=== PATIENT | female | born 1980 | race Caucasian/White ===

== ENCOUNTER 2016-12-07 14:05 | Emergency (ER) | payer SELFPAY ==
[2016-12-07 14:40] VITALS: BP 117/59
--- NOTE | 2016-12-07 14:51 | RAD ---
INDICATION: Ankle pain. No injury COMPARISON: None TECHNIQUE: AP, lateral, and oblique views were obtained. FINDINGS: There are no acute bony findings. The ankle mortise is intact. 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 IMPRESSION: NO ACUTE BONY FINDINGS.
--- NOTE | 2016-12-07 15:29 | UC ---
Lower Extremity/Ankle HPI - HPI Summary HPI Summary: Noticed pain in ball of R foot last night after work, had difficulty walking home. Pain wraps around into arch of foot. No trauma. - History of Current Complaint Chief Complaint: UCLowerExtremity Stated Complaint: RIGHT ANKLE INJURY Time Seen by Provider: 12/07/16 14:41 Hx Obtained From: Patient Hx Last Menstrual Period: END OF LAST MONTH ?: No Onset/Duration: Gradual Onset, Lasting Hours Severity Initially: Mild Severity Currently: Mild Aggravating Factor(s): Standing, Ambulation Alleviating Factor(s): Rest Able to Bear Weight: Yes - Allergies/Home Medications Allergies/Adverse Reactions: Allergies Allergy/AdvReac Type Severity Reaction Status Date / Time environmental allergies Allergy Eyes Uncoded 12/07/16 14:40 Itchy/Swollen/Red/Watery Home Medications: Home Medications Naproxen Sodium 220 mg PO ONCE PRN 12/07/16 [History Confirmed 12/07/16] PMH/Surg Hx/FS Hx/Imm Hx - Additional Past Medical History Additional PMH: pt has charcot raffy tooth Endocrine History Of: Denies: Diabetes Cardiovascular History Of: Denies: Hypertension, Pacemaker/ICD Respiratory History Of: Reports: Asthma - Surgical History Surgical History: Yes Surgery Procedure, Year, and Place: c section x 2 - Family History Known Family History: Positive: Other - charcot raffy tooth - Social History Alcohol Use: Rare Substance Use Type: None Substance Use Comment - Amount & Last Used: 3 20oz. caffeine drinks Smoking Status (MU): Never Smoked Tobacco Review of Systems Constitutional: Negative Skin: Negative Eyes: Negative ENT: Negative Respiratory: Negative Cardiovascular: Negative Gastrointestinal: Negative Genitourinary: Negative Motor: Negative Neurovascular: Negative Musculoskeletal: Arthralgia - foot pain Neurological: Negative Psychological: Negative All Other Systems Reviewed And Are Negative: Yes Physical Exam Triage Information Reviewed: Yes Appearance: Well-Appearing, Pain Distress - mild Vital Signs: Initial Vital Signs Temp 99.5 F 12/07/16 14:35 Pulse 93 12/07/16 14:35 Resp 16 12/07/16 14:35 BP 117/59 12/07/16 14:35 Pulse Ox 100 12/07/16 14:35 Vital Signs Reviewed: Yes Eye Exam: Normal Eyes: Positive: Conjunctiva Clear ENT Exam: Normal ENT: Positive: Normal ENT inspection, Hearing grossly normal, Pharynx normal, TMs normal Dental Exam: Other - edentulous Respiratory Exam: Normal Respiratory: Positive: Chest non-tender, Lungs clear, Normal breath sounds, No respiratory distress, No accessory muscle use Cardiovascular Exam: Normal Cardiovascular: Positive: RRR, No Murmur Musculoskeletal Exam: Other - tender over ball of R foot, near metatarsal heads Musculoskeletal: Positive: Strength Intact, ROM Intact Neurological Exam: Normal Psychological Exam: Normal Skin Exam: Normal Lower Extremity Course/Dx - Differential Dx/Diagnosis Provider Diagnoses: R metatarsalgia Discharge - Discharge Plan Condition: Stable Disposition: HOME Patient Education Materials: Arthralgia (ED) Forms: *Work Release Referrals: Francisco DEL CASTILLO,García Forbes [Doctor of Podiatric Medicine] - Additional Instructions: As we discussed, I think your foot pain is coming from the ball of your foot, from inflammation around the ends of your metatarsals (the long bones in the feet). Usually this is treated by trying to rest from weight-bearing when possible and increasing the shock absorption in your shoes. Your current insoles do not have any cushion for your metatarsals. Please find thin foam insoles that you can cut to the shape of your work shoes, then on top of those put "sport" insoles that include the whole forefoot and have a metatarsal pad. Alternatively, you could use the insoles you have and buy separate metatarsal pads for your shoes.
== END 2016-12-07 15:30 | disposition home or self-care (01) ==
LOC: UCCORT 14:05
DX: M77.41 Metatarsalgia, right foot (principal)
CPT/HCPCS: 99211; G0463

== ENCOUNTER 2017-12-31 19:22 | Emergency (ER) | payer SELFPAY ==
[2017-12-31 19:43] VITALS: BP 126/67
[2017-12-31] MEDS ORDERED: Ibuprofen TAB* 600 MG PO ONE (19:58)
[2017-12-31] MEDS ORDERED: Cyclobenzaprine TAB* 10 MG PO ONE (19:58)
--- NOTE | 2017-12-31 20:18 | UC ---
Shoulder Pain HPI - HPI Summary HPI Summary: awoke this morning with right shoulder pain hurts to move her arm-could barely pass money out the drive in window at [facility] today, pain ful rom trapezious muscles sore and tight - History of Current Complaint Chief Complaint: UCUpperExtremity Stated Complaint: RIGHT ARM COMPLAINT Time Seen by Provider: 12/31/17 19:42 Hx Obtained From: Patient Hx Last Menstrual Period: 12/16/17 ?: No Onset/Duration: Sudden Onset Timing: Constant Severity Initially: Moderate Severity Currently: Moderate Location Of Pain: Is Discrete @ Pain Intensity: 5 Pain Scale Used: 0-10 Numeric Character: Aching, Throbbing, Stiffness Aggravating Factor(s): Movement Alleviating Factor(s): OTC Meds - ibuprofen and icyhot for brief periods of time Associated Signs And Symptoms: Positive: Negative Related History: Dominant Hand Right - Allergies/Home Medications Allergies/Adverse Reactions: Allergies Allergy/AdvReac Type Severity Reaction Status Date / Time environmental allergies Allergy Eyes Uncoded 12/31/17 19:36 Itchy/Swollen/Red/Watery PMH/Surg Hx/FS Hx/Imm Hx Previously Healthy: No - muscular dystrophy - Surgical History Surgical History: Yes Surgery Procedure, Year, and Place: c section x 2 - Family History Known Family History: Positive: Other - charcot raffy tooth - Social History Occupation: Employed Full-time Lives: With Family Alcohol Use: None Substance Use Type: None Substance Use Comment - Amount & Last Used: 3 20oz. caffeine drinks Smoking Status (MU): Never Smoked Tobacco Review of Systems Constitutional: Negative Skin: Negative Eyes: Negative ENT: Negative Respiratory: Negative Cardiovascular: Negative Gastrointestinal: Negative Genitourinary: Negative Motor: Decreased ROM - right shoulder Neurovascular: Negative Musculoskeletal: Arthralgia - right shoulder Neurological: Negative Psychological: Negative Is Patient Immunocompromised?: No All Other Systems Reviewed And Are Negative: Yes Physical Exam Triage Information Reviewed: Yes Appearance: Well-Appearing, Pain Distress, Obese Vital Signs: Initial Vital Signs Temp 97.9 F 12/31/17 19:36 Pulse 80 12/31/17 19:36 Resp 16 12/31/17 19:36 BP 126/67 12/31/17 19:36 Pulse Ox 100 12/31/17 19:36 Vital Signs Reviewed: Yes Eye Exam: Normal Eyes: Positive: Conjunctiva Clear ENT Exam: Normal ENT: Positive: Normal ENT inspection, Hearing grossly normal. Negative: Nasal congestion, Trismus, Muffled voice, Hoarse voice Dental Exam: Normal Neck exam: Normal Neck: Positive: Supple, Nontender, No Lymphadenopathy Respiratory Exam: Normal Respiratory: Positive: Chest non-tender, Lungs clear, Normal breath sounds, No respiratory distress, No accessory muscle use Cardiovascular Exam: Normal Cardiovascular: Positive: RRR, No Murmur, Pulses Normal, Brisk Capillary Refill Musculoskeletal Exam: Other Musculoskeletal: Positive: No Edema, Strength Limited @ - right shoulder, ROM Limited @ - right shoulder Neurological Exam: Normal Neurological: Positive: Alert, Muscle Tone Normal Psychological Exam: Normal Skin Exam: Normal Shoulder Course/Dx - Course Assessment/Plan: flexeril, mobic, heat, follow with pcp/[facility] or return as needed - Differential Dx/Diagnosis Provider Diagnoses: muscle strain right shoulder Discharge - Discharge Plan Condition: Stable Disposition: HOME Prescriptions: Cyclobenzaprine TAB* [Flexeril 10 MG TAB*] 10 mg PO TID PRN #30 tab PRN Reason: muscle spasm Meloxicam [Mobic] 7.5 mg PO BID #30 tablet Patient Education Materials: Shoulder Pain (ED) Forms: *Work Release Referrals: [facility] [Outside] - If Needed Delio Hyman MD [Medical Doctor] - 1 Week
== END 2017-12-31 20:10 | disposition home or self-care (01) ==
LOC: UCCORT 19:22
DX: S66.811A Strain of other specified muscles, fascia and tendons at wrist and hand level, right hand, initial encounter (principal); X50.1XXA Overexertion from prolonged static or awkward postures, initial encounter; Y93.84 Activity, sleeping; Y92.003 Bedroom of unspecified non-institutional (private) residence as the place of occurrence of the external cause
CPT/HCPCS: 99212; A9270-GY; G0463

== ENCOUNTER 2018-03-17 17:08 | Emergency (ER) | payer OTHER ==
[2018-03-17 17:30] VITALS: BP 129/74
--- NOTE | 2018-03-17 18:05 | ED ---
Lower Extremity - HPI Summary HPI Summary: 38 yr old female with the complaint of right foot plantar pain for a month. No specific injury or specific recollection of onset of symptoms. pain present under arch of foot to the posterior heel. No calf pain. Pain worse with bearing weight. No other complaints. - History of Current Complaint Chief Complaint: UCLowerExtremity Stated Complaint: RT FOOT COMPLAINT Time Seen by Provider: 03/17/18 17:33 Hx Last Menstrual Period: 03/06/18 Pain Intensity: 8 - Allergies/Home Medications Allergies/Adverse Reactions: Allergies Allergy/AdvReac Type Severity Reaction Status Date / Time No Known Allergies Allergy Verified 03/17/18 17:30 Home Medications: Home Medications Albuterol HFA INHALER* [Ventolin HFA Inhaler*] 2 puff INH Q6H PRN 03/17/18 [ History Confirmed 03/17/18] Naproxen Sodium [Naproxen 220 mg] 440 mg PO DAILY PRN 03/17/18 [History Confirmed 03/17/18] PMH/Surg Hx/FS Hx/Imm Hx Endocrine/Hematology History: Denies: Hx Diabetes Cardiovascular History: Denies: Hx Hypertension, Hx Pacemaker/ICD Respiratory History: Reports: Hx Asthma Sensory History: Denies: Hx Hearing Aid Psychiatric History: Denies: Hx Panic Disorder - Surgical History Surgery Procedure, Year, and Place: c section x 2 Infectious Disease History: No Infectious Disease History: Denies: Traveled Outside the [place] in Last 30 Days - Family History Known Family History: Positive: Other - charcot raffy tooth - Social History Occupation: Employed Full-time Alcohol Use: None Substance Use Type: Reports: None Substance Use Comment - Amount & Last Used: 3 20oz. caffeine drinks Smoking Status (MU): Never Smoked Tobacco Review of Systems Positive: Other - foot pain right All Other Systems Reviewed And Are Negative: Yes Physical Exam Triage Information Reviewed: Yes Vital Signs On Initial Exam: Initial Vitals Temp Pulse Resp BP Pulse Ox 98.2 F 90 16 129/74 100 03/17/18 17:18 03/17/18 17:18 03/17/18 17:18 03/17/18 17:18 03/17/18 17:18 Vital Signs Reviewed: Yes Appearance: Positive: Well-Appearing, No Pain Distress Skin: Positive: Warm Head/Face: Positive: Normal Head/Face Inspection Eyes: Positive: EOMI Respiratory/Lung Sounds: Positive: Clear to Auscultation Cardiovascular: Positive: RRR, Pulses are Symmetrical in both Upper and Lower Extremities - intact DP and PT pulses Abdomen Description: Positive: Nontender Musculoskeletal: Positive: Other - mild tender right foot plantar fascia. Achilles tendon is solid, not weak, and no calf tenderness right leg. No STS to foot, no redness, no bruising. Neurological: Positive: Sensory/Motor Intact, Alert, Oriented to Person Place, Time, CN Intact II-III Diagnostics - Vital Signs Vital Signs Temp Pulse Resp BP Pulse Ox 03/17/18 17:18 98.2 F 90 16 129/74 100 - Laboratory Lab Statement: Any lab studies that have been ordered have been reviewed, and results considered in the medical decision making process. - Radiology foot right Xray Interpretation: Positive (See Comments) - heel spurs Radiology Interpretation Completed By: Radiologist Lower Extremity Course/Dx - Course Course Of Treatment: 38 yr old female with right foot pain likely plantar fascitis. heel spurs as well. referral to ortho. - Diagnoses Provider Diagnoses: Heel spur, Plantar fasciitis of right foot Discharge - Sign-Out/Discharge Documenting (check all that apply): Discharge/Admit/Transfer - Discharge Plan Condition: Good Disposition: HOME Patient Education Materials: Plantar Fasciitis (ED), Plantar Fasciitis Exercises (GEN), Heel Spur (ED) Referrals: No Primary Care Phys,NOPCP [Primary Care Provider] - Delio Hyman MD [Medical Doctor] - 2 Days - Billing Disposition and Condition Condition: GOOD Disposition: HOME
--- NOTE | 2018-03-17 18:09 | RAD ---
HISTORY: Right foot pain COMPARISONS: None VIEWS: 3, Frontal, lateral, and oblique views of the right foot FINDINGS: BONE DENSITY: Normal. BONES: There is no displaced fracture. There are small plantar calcaneal and posterior calcaneal enthesophytes. JOINTS: There is no arthropathy. ALIGNMENT: The MTP joints are held in extension. The PIP joints are held in flexion. SOFT TISSUES: Unremarkable. OTHER FINDINGS: None. IMPRESSION: HEEL SPURS. NO ACUTE OSSEOUS INJURY. IF SYMPTOMS PERSIST, RECOMMEND REPEAT IMAGING.
== END 2018-03-17 18:40 | disposition home or self-care (01) ==
LOC: UCCORT 17:08
DX: M77.31 Calcaneal spur, right foot (principal); M72.2 Plantar fascial fibromatosis; J45.909 Unspecified asthma, uncomplicated
CPT/HCPCS: 99212; G0463

== ENCOUNTER 2018-07-28 17:03 | Emergency (ER) | payer OTHER ==
[2018-07-28 17:33] VITALS: BP 132/84
--- NOTE | 2018-07-28 18:17 | UC ---
Hand/Wrist HPI - HPI Summary HPI Summary: 38 yo female presents with right hand pain since 1030 this morning. She tells me that she was at work and accidentally closed her right hand in the freezer door. She continued to work the rest of the day, but says she was predominantly using her left hand. She is able to move her wrist and all fingers, but says it is painful. Has some swelling and intermittent numbness. She took naproxen with mild pain relief. - History Of Current Complaint Chief Complaint: UCUpperExtremity Stated Complaint: R HAND INJURY - WC Time Seen by Provider: 07/28/18 17:33 Hx Obtained From: Patient Hx Last Menstrual Period: 07/07/18 Onset/Duration: Sudden Onset Severity Initially: Severe Severity Currently: Severe Pain Intensity: 8 Pain Scale Used: 0-10 Numeric - Allergies/Home Medications Allergies/Adverse Reactions: Allergies Allergy/AdvReac Type Severity Reaction Status Date / Time No Known Allergies Allergy Verified 03/17/18 17:30 Home Medications: Home Medications Sound And Body Ibuprofen 500mg 1,000 mg PO ONCE PRN 07/28/18 [History Confirmed 07/28/18] PMH/Surg Hx/FS Hx/Imm Hx Respiratory History: Asthma - Surgical History Surgical History: Yes Surgery Procedure, Year, and Place: c section x 2 - Family History Known Family History: Positive: Other - charcot raffy tooth - Social History Occupation: Employed Full-time Lives: With Family Alcohol Use: None Substance Use Type: None Substance Use Comment - Amount & Last Used: 3 20oz. caffeine drinks Smoking Status (MU): Never Smoked Tobacco Review of Systems Constitutional: Negative Skin: Negative Respiratory: Negative Cardiovascular: Negative Gastrointestinal: Negative Neurovascular: Negative Musculoskeletal: Other: - Right hand pain Neurological: Negative Psychological: Negative All Other Systems Reviewed And Are Negative: Yes Physical Exam - Summary Physical Exam Summary: GENERAL: NAD. WDWN. No pain distress. SKIN: No rashes, sores, lesions, or open wounds. CHEST: No accessory muscle use. Breathing comfortably and in no distress. CV: Pulses intact radial and ulnar. Cap refill <2seconds MSK: RIGHT HAND: Mild edema are dorsal aspect along 2-5MTs. Mild TTP. FROM, but with mild pain. 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 NEURO: Alert. Sensations intact hand and all fingers. PSYCH: Age appropriate behavior. Triage Information Reviewed: Yes Vital Signs: Initial Vital Signs Temp 98.5 F 07/28/18 17:24 Pulse 94 07/28/18 17:24 Resp 18 07/28/18 17:24 BP 132/84 07/28/18 17:24 Pulse Ox 100 07/28/18 17:24 Vital Signs Reviewed: Yes Hand/Wrist Course/Dx - Course Course Of Treatment: XR: No radiologist reading after 1800, therefore wet read by myself is negative for fracture. Pt was advised to RICE and continue taking naproxen for her right hand contusion. F/u with occupational medicine if her symptoms persist. - Differential Dx/Diagnosis Provider Diagnoses: Right hand pain Discharge - Sign-Out/Discharge Documenting (check all that apply): Patient Departure All imaging exams completed and their final reports reviewed: No - Discharge Plan Condition: Stable Disposition: HOME Patient Education Materials: Contusion in Adults (ED) Referrals: Vidhya Schaffer PA [Primary Care Provider] - Matt Cruz MD [Medical Doctor] - As Soon As Possible Additional Instructions: If you develop a fever, shortness of breath, chest pain, new or worsening symptoms - please call your PCP or go to the ED. 1) Rest, Ice, and elevate your hand as much as possible 2) May take your pain medication for your hand pain 3) If your symptoms persist - please call Dr. Cruz at the number below to schedule a follow up appointment - Billing Disposition and Condition Condition: STABLE Disposition: Home
--- NOTE | 2018-07-29 07:54 | RAD ---
Indication: Right hand pain. 4 views of the right hand are reviewed. There is no fracture or dislocation. No other bone or joint abnormality is identified. Joint spaces all well-preserved. IMPRESSION: No fracture of the right hand is present. R0
--- NOTE | 2018-07-29 09:52 | UC ---
- Progress Note Progress Note: Patient Name: SISSY GARRETT Medical Record#: [id number] Ordering Physician: Henri DUMONT Acct.#: [id number] : 1980 Age: 38 Sex: F Location: [facility] Exam Date: 07/28/181732 ADM Status: [facility] ER Order Information: HAND - RIGHT MINIMUM 3 VIEWS Accession Number: [id number] CPT: 98569 Indication: Right hand pain. 4 views of the right hand are reviewed. There is no fracture or dislocation. No other bone or joint abnormality is identified. Joint spaces all well-preserved. IMPRESSION: No fracture of the right hand is present. R0 <Electronically signed by Lacey Jara MD in OV> 07/29/18750 Dictated By: Lacey Jara MD Dictated Date/Time: 07/29/18750 Transcribed Date/Time: 07/29/18750 Copy to: CC:Vidhya DUMONT; Henri DUMONT; Kaz Toth MD Imaging - [facility] Imaging [facility] Urgent [facility] [place] [address] [place] [address] ph ([phone]) ph ([phone]) ([phone]) This report is only to be considered final once signed by the Provider(s) as displayed in the "<Electronically Signed by >" field (s). Absence of a signature indicates the report is in a draft status and still needs to be finalized. In the event this document was created by someone other than the signing Provider, the individual initiating the document will be listed in the "Entered by:" or "Dictated by:" julien. 1 of 1 Discharge - Sign-Out/Discharge Documenting (check all that apply): Post-Discharge Follow Up All imaging exams completed and their final reports reviewed: Yes - Discharge Plan Condition: Stable Disposition: HOME Patient Education Materials: Contusion in Adults (ED) Referrals: Matt Cruz MD [Medical Doctor] - As Soon As Possible Vidhya Schaffer PA [Primary Care Provider] - Additional Instructions: If you develop a fever, shortness of breath, chest pain, new or worsening symptoms - please call your PCP or go to the ED. 1) Rest, Ice, and elevate your hand as much as possible 2) May take your pain medication for your hand pain 3) If your symptoms persist - please call Dr. Cruz at the number below to schedule a follow up appointment - Billing Disposition and Condition Condition: STABLE Disposition: Home
== END 2018-07-28 18:31 | disposition home or self-care (01) ==
LOC: UCCORT 17:03
DX: W23.0XXA Caught, crushed, jammed, or pinched between moving objects, initial encounter (principal); Y92.9 Unspecified place or not applicable; Y99.0 Civilian activity done for income or pay; M79.641 Pain in right hand
CPT/HCPCS: 99211; G0463

== ENCOUNTER 2018-11-15 20:46 | Emergency (ER) | payer SELFPAY ==
[2018-11-15 20:57] VITALS: BP 139/62
--- NOTE | 2018-11-15 21:16 | UC ---
Hand/Wrist HPI - HPI Summary HPI Summary: 38-year-old woman here with a chief complaint of bilateral hand numbness. Been going on and off for several weeks. Recently symptoms got worse primarily on the right hand. Patient works where there is repetitive motion use of both hands. The patient wakes up the symptoms of the worst. She has numbness primarily in the thumb index and middle fingers and also weakness. Over time the 10 to improve as the day goes on. No recent specific trauma. 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 - History Of Current Complaint Chief Complaint: UCUpperExtremity Stated Complaint: RIGHT HAND NUMBESS/TINGLING Time Seen by Provider: 11/15/18 20:55 Hx Last Menstrual Period: 10/26/18 Pain Intensity: 9 - Allergies/Home Medications Allergies/Adverse Reactions: Allergies Allergy/AdvReac Type Severity Reaction Status Date / Time No Known Allergies Allergy Verified 11/15/18 20:57 Home Medications: Home Medications Acetaminophen [Tylenol Extra Strength] 500 mg PO ONCE 11/15/18 [History Confirmed 11/15/18] PMH/Surg Hx/FS Hx/Imm Hx Previously Healthy: Yes Respiratory History: Asthma - Surgical History Surgical History: Yes Surgery Procedure, Year, and Place: c section x 2 - Family History Known Family History: Positive: Other - charcot raffy tooth - Social History Alcohol Use: Occasionally Substance Use Type: None Substance Use Comment - Amount & Last Used: 3 20oz. caffeine drinks Smoking Status (MU): Never Smoked Tobacco Household Exposure Type: Cigarettes Review of Systems All Other Systems Reviewed And Are Negative: Yes Constitutional: Positive: Negative Skin: Positive: Negative Eyes: Positive: Negative ENT: Positive: Negative Respiratory: Positive: Negative Cardiovascular: Positive: Negative Gastrointestinal: Positive: Negative Motor: Positive: Weakness Neurovascular: Positive: Decreased Sensation Musculoskeletal: Positive: Other: - see hpi Neurological: Positive: Weakness, Paresthesia, Numbness Psychological: Positive: Negative Is Patient Immunocompromised?: No Physical Exam Triage Information Reviewed: Yes Appearance: Well-Appearing, No Pain Distress, Well-Nourished Vital Signs: Initial Vital Signs Temp 97.1 F 11/15/18 20:53 Pulse 106 11/15/18 20:53 Resp 18 11/15/18 20:53 BP 139/62 11/15/18 20:53 Pulse Ox 99 11/15/18 20:53 Vital Signs Reviewed: Yes Eye Exam: Normal Eyes: Positive: Conjunctiva Clear Neck exam: Normal Neck: Positive: Supple Respiratory: Positive: No respiratory distress Musculoskeletal: Positive: Other: - positive tinel's on the right. Patient reports less sensation in median nerve distribution compared to the ulnat nerve distribution in the right hand. Neurological: Positive: Alert Psychological Exam: Normal Psychological: Positive: Age Appropriate Behavior Skin Exam: Normal Hand/Wrist Course/Dx - Course Course Of Treatment: I discussed the x-ray results with the patient. I do not see any acute disease process on x-rays radiologist reading is pending. Clinically the patient has bilateral carpal tunnel which is worst on the right than the left. The plan is cock-up splint ice ibuprofen. Patient reports she has a follow-up appointment with her primary care physician on November 21, 2018. - Differential Dx/Diagnosis Provider Diagnosis: Carpal tunnel syndrome, bilateral Discharge - Sign-Out/Discharge Documenting (check all that apply): Patient Departure All imaging exams completed and their final reports reviewed: No - Discharge Plan Condition: Stable Disposition: HOME Prescriptions: Ibuprofen TAB* [Motrin TAB* 600 MG] 600 mg PO Q6H PRN #30 tab PRN Reason: Pain Patient Education Materials: Wrist Sprain (ED), Paresthesia (ED) Referrals: Vidhya Schaffer PA [Primary Care Provider] - Additional Instructions: FOLLOW UP WITH YOUR DOCTOR ON 11/21/18 SCHEDULED FOR YOUR CARPAL TUNNEL SYMPTOMS. GET RECHECKED SOONER WITH ANY WORSENING OF YOUR CONDITION OR QUESTIONS OR CONCERNS. - Billing Disposition and Condition Condition: STABLE Disposition: Home
[2018-11-15] MEDS ORDERED: Ibuprofen TAB* 600 MG PO ONE (21:32)
--- NOTE | 2018-11-16 09:36 | UC ---
- Progress Note Progress Note: Patient Name: SISSY GARRETT Medical Record#: [id number] Ordering Physician: Corey Adler MD Acct.#: [id number] : 1980 Age: 38 Sex: F Location: [facility] Exam Date: 11/15/182103 ADM Status: [facility] ER Order Information: WRISTS BILATERAL Accession Number: [id number] CPT: 34327 Indication: Bilateral carpal tunnel syndrome. 3 views of the right wrist and 3 views of the left wrist are reviewed. No fracture or dislocation is noted. No other bone or joint abnormality is identified. Ulnar minus variance is noted in the right ulna. IMPRESSION: Unremarkable bilateral wrists with shortened ulna in the right wrist. R0 Preliminary Imaging Read R0 <Electronically signed by Lacey Jara MD in OV> 11/16/18757 Dictated By: Lacey Jara MD Dictated Date/Time: 11/16/18757 Transcribed Date/Time: 11/16/18753 Copy to: CC:Vidhya DUMONT; Corey Adler MD Imaging - [facility] - [facility] [place] [address] [address] ph ([phone]) ph ([phone]) ([phone]) This report is only to be considered final once signed by the Provider(s) as displayed in the "<Electronically Signed by >" field (s). Absence of a signature indicates the report is in a draft status and still needs to be finalized. In the event this document was created by someone other than the signing Provider, the individual initiating the document will be listed in the "Entered by:" or "Dictated by:" julien. 1 of 1 Course/Dx - Diagnoses Provider Diagnoses: Carpal tunnel syndrome, bilateral Discharge - Sign-Out/Discharge Documenting (check all that apply): Patient Departure, Post-Discharge Follow Up All imaging exams completed and their final reports reviewed: Yes - Discharge Plan Condition: Stable Disposition: HOME Prescriptions: Ibuprofen TAB* [Motrin TAB* 600 MG] 600 mg PO Q6H PRN #30 tab PRN Reason: Pain Patient Education Materials: Paresthesia (ED), Wrist Sprain (ED) Forms: *Work Release Referrals: Vidhya Schaffer PA [Primary Care Provider] - Additional Instructions: FOLLOW UP WITH YOUR DOCTOR ON 11/21/18 SCHEDULED FOR YOUR CARPAL TUNNEL SYMPTOMS. GET RECHECKED SOONER WITH ANY WORSENING OF YOUR CONDITION OR QUESTIONS OR CONCERNS. - Billing Disposition and Condition Condition: STABLE Disposition: Home
== END 2018-11-15 21:54 | disposition home or self-care (01) ==
LOC: UCCORT 20:46
DX: G56.03 Carpal tunnel syndrome, bilateral upper limbs (principal); J45.909 Unspecified asthma, uncomplicated
CPT/HCPCS: 99213; A9270-GY; G0463